=== PATIENT | male | born 1990 | race Caucasian/White ===

== ENCOUNTER 2016-09-27 10:34 | Emergency (ER) | payer BC, OTHER ==
[2016-09-27 10:39] VITALS: BP 144/66; PULSE 59; TEMP 97.6; BMI 27.3
--- NOTE | 2016-09-27 11:27 | PDOC ---
History of Present Illness - General Chief Complaint: Eye Problem Stated Complaint: PAIN IN RIGHT EYE Time Seen by Provider: 09/27/16 10:45 History Source: Patient Exam Limitations: No Limitations - History of Present Illness Initial Comments: 09/27/16 12:59 CHIEF COMPLAINT: Irritation to right eye HISTORY OF PRESENT ILLNESS: Patient is a 26-year-old male reports having irritation or foreign body to his right eye today feels like sand particles in his eye. Eyes any visual disturbance. Wants to make sure he does not have an injury to his eye. REVIEW OF SYSTEMS: GENERAL/CONSTITUTIONAL: No fever or chills. No weakness. No weight change. HEAD, EYES, EARS, NOSE AND THROAT: No change in vision. No Drainage and sensation of "foreign body" to right eye. No ear pain or discharge. No sore throat. RESPIRATORY: No cough, wheezing, or hemoptysis. SKIN : No rash or easy bruising. NEUROLOGIC: No headache, vertigo, loss of consciousness, or loss of sensation. HEMATOLOGIC/LYMPHATIC: No lymphadenopathy ALLERGIC/IMMUNOLOGIC: No hives or skin allergy. No latex allergy. PHYSICAL EXAM: GENERAL: The patient is awake, alert, and fully oriented, in no acute distress. HEAD: Normal with no signs of trauma. EYES: Pupils equal, round and reactive to light, extraocular movements intact, sclera anicteric, conjunctiva clear, no corneal abrasion noted after fluorescein staining. ENT: Ears normal, nares patent, oropharynx clear without exudates. Moist mucous membranes. NECK: Normal range of motion, supple without lymphadenopathy, JVD, or masses. LUNGS: Breath sounds equal, clear to auscultation bilaterally. No wheezes, and no crackles. NEUROLOGICAL: Cranial nerves II through XII grossly intact. Normal speech, normal gait. SKIN: No erythema no facial edema. Warm, Dry, normal turgor, no rashes or lesions noted. Past History - Past Medical History Allergies/Adverse Reactions: Allergies Allergy/AdvReac Type Severity Reaction Status Date / Time No Known Allergies Allergy Verified 09/27/16 10:36 Home Medications: Ambulatory Orders Polymyxin B Sulfate/Tmp [Polytrim Opthalmic Solution -] 1 drop OD Q3H #1 drops 09/27/16 Other medical history: PATIENT DENIES MEDICAL HISTORY - Psycho/Social/Smoking Cessation Hx Suicidal Ideation: No Smoking History: Never smoked Hx Alcohol Use: No Drug/Substance Use Hx: No *Physical Exam - Vital Signs Last Vital Signs Temp Pulse Resp BP Pulse Ox 97.6 F 59 L 18 144/66 97 09/27/16 10:36 09/27/16 10:36 09/27/16 10:36 09/27/16 10:36 09/27/16 10:36 Medical Decision Making - Medical Decision Making 09/27/16 13:01 A/P: Patient with foreign body sensation to right eye, there is no corneal abrasion noted, mild irritation will DC patient on Polytrim to follow-up with ophthalmology if symptoms persist there is no visual disturbance visual acuity is 20/20. Patient to follow-up as needed. *DC/Admit/Observation/Transfer Diagnosis at time of Disposition: Eye irritation - Discharge Dispostion Disposition: HOME Condition at time of disposition: Good Admit: No - Prescriptions Prescriptions: Polymyxin B Sulfate/Tmp [Polytrim Opthalmic Solution -] 1 drop OD Q3H #1 drops - Referrals Referrals: Quique Morales MD [Staff Physician] - - Patient Instructions Printed Discharge Instructions: How to Instill Eye Drops Additional Instructions: PLease refrain from rubbing or scratching eye, if increased irritation return to ER.
== END 2016-09-27 11:34 | disposition home or self-care (01) ==
LOC: JERFT 10:34
DX: H57.8 Other specified disorders of eye and adnexa (principal)
CPT/HCPCS: 99281-25

== ENCOUNTER 2017-11-01 15:32 | Emergency (ER) | payer OTHER, BC ==
[2017-11-01 15:49] VITALS: BP 143/78; PULSE 94; TEMP 98.3; BMI 28.0
[2017-11-01] MEDS ORDERED: IBUPROFEN 600 MG TABLET (FP) PO ONE ×2 (16:07→16:38)
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
== END 2017-11-01 16:34 | disposition home or self-care (01) ==
LOC: JER 15:32 → JERFT 15:32
DX: S39.012A Strain of muscle, fascia and tendon of lower back, initial encounter (principal); S66.811A Strain of other specified muscles, fascia and tendons at wrist and hand level, right hand, initial encounter; Y35.811A Legal intervention involving manhandling, law enforcement official injured, initial encounter; Y93.89 Activity, other specified; Y92.89 Other specified places as the place of occurrence of the external cause; Y99.0 Civilian activity done for income or pay
CPT/HCPCS: 99281-25

== ENCOUNTER 2018-05-14 15:27 | Emergency (ER) | payer OTHER ==
[2018-05-14 15:54] VITALS: BP 134/78; PULSE 89; TEMP 98.4; BMI 25.4
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
[2018-05-14] MEDS ORDERED: IBUPROFEN 400 MG TABLET (FP) PO ONE ×2 (16:29→16:30)
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
== END 2018-05-14 16:36 | disposition home or self-care (01) ==
LOC: JER 15:27
DX: S39.012A Strain of muscle, fascia and tendon of lower back, initial encounter (principal); Y35.811A Legal intervention involving manhandling, law enforcement official injured, initial encounter; Y93.89 Activity, other specified; Y92.89 Other specified places as the place of occurrence of the external cause; Y99.0 Civilian activity done for income or pay
CPT/HCPCS: 72070-TC-FY; 99281-25

== ENCOUNTER 2019-03-09 11:06 | Emergency (ER) | payer OTHER ==
[2019-03-09 11:22] VITALS: BP 138/59; PULSE 59; TEMP 98; BMI 28.0
[2019-03-09] MEDS ORDERED: NAPROXEN 500 MG TABLET (FP) PO ONE (11:30)
--- NOTE | 2019-03-09 11:42 | PDOC ---
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 Patient reports 6 out of 10 pain to right lower back. Denies numbness and tingling sensation. Patient has not taken anything for pain Occurred: reports: just prior to arrival Past History - Past Medical History Allergies/Adverse Reactions: Allergies Allergy/AdvReac Type Severity Reaction Status Date / Time No Known Allergies Allergy Verified 03/09/19 11:22 Home Medications: Ambulatory Orders Cyclobenzaprine HCl [Flexeril -] 10 mg PO HS #10 tablet 05/14/18 Ibuprofen 800 mg PO TID #30 tablet 05/14/18 Methocarbamol [Robaxin -] 500 mg PO BID #14 tablet 03/09/19 Naproxen 500 mg PO BID PRN #20 tablet 03/09/19 COPD: No - Immunization History Immunization Up to Date: Yes - Psycho Social/Smoking Cessation Hx Smoking History: Never smoked Have you smoked in the past 12 months: No Hx Alcohol Use: No Drug/Substance Use Hx: No Review of Systems - Review of Systems Able to Perform ROS?: Yes Is the patient limited Nepali proficient: No Constitutional: No: Fever, Malaise, Weakness HEENTM: No: Symptoms Reported Respiratory: No: Symptoms reported Cardiac (ROS): No: Symptoms Reported ABD/GI: No: Symptoms Reported Musculoskeletal: Yes: Symptoms Reported, See HPI, Back Pain (right lower back), Muscle Pain Integumentary: No: Symptoms Reported Neurological: No: Symptoms reported, Numbness, Paresthesia, Tingling All Other Systems: Reviewed and Negative *Physical Exam - Vital Signs Last Vital Signs Temp Pulse Resp BP Pulse Ox 98 F 59 L 18 138/59 L 99 03/09/19 11:20 03/09/19 11:20 03/09/19 11:20 03/09/19 11:20 03/09/19 11:20 - Physical Exam Comments: 03/09/19 11:41 GENERAL: Well developed, well nourished. Awake and alert. No acute distress. CARDIOVASCULAR: Regular rate and rhythm. No murmurs, rubs, or gallops. PULMONARY: No evidence of respiratory distress. Lungs clear to auscultation bilaterally. No wheezing, rales or rhonchi. ABDOMINAL: Soft. Non-tender. Non-distended. No rebound or guarding. No organomegaly. Normoactive bowel sounds MUSCULOSKELETAL : mild tenderness over posterior paravertebral muscle lumbosacral spine of L4-S2 on right sides. No midline tenderness no bony deformities EXTREMITIES: No cyanosis. No clubbing. No edema. No calf tenderness. SKIN: Warm and dry. Normal capillary refill. No rashes. No jaundice. NEUROLOGICAL: Alert, awake, appropriate. No motor deficits in the lower extremities. Gait is normal without ataxia. PSYCHIATRIC: Cooperative. Good eye contact. Appropriate mood and affect. General Appearance: Yes: Nourished, Appropriately Dressed. 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 Patient reports 6 out of 10 pain to right lower back. Denies numbness and tingling sensation. Patient has not taken anything for pain Exam significant for mild tenderness right paravertebral muscle of lower lumbar spine of L4-S2. No midline tenderness. Patient symptoms likely back strain. Naproxen 500 mg p.o. ordered for pain. Patient stable for discharge on naproxen as needed for pain and Robaxin as needed for spasm with advised to do hot compress and follow-up with orthopedics as needed Discharge - Discharge Information Problems reviewed: Yes Clinical Impression/Diagnosis: Low back strain Qualifiers: Encounter type: initial encounter Qualified Code(s): S39.012A - Strain of muscle, fascia and tendon of lower back, initial encounter Condition: Stable Disposition: HOME - Admission No - Additional Discharge Information Prescriptions: Methocarbamol [Robaxin -] 500 mg PO BID #14 tablet Naproxen 500 mg PO BID PRN #20 tablet PRN Reason: Back Pain - Follow up/Referral Referrals: Frank Meza MD, [facility] [Staff Physician] - - Patient Discharge Instructions Patient Printed Discharge Instructions: DI for Low Back Pain Additional Instructions: Your symptoms likely caused by back strain. Take prescribed medication as needed for pain. Apply hot compress to lower back 2-3 times a day as needed for pain. Follow-up with orthopedics as needed if symptoms persist for more than 4 days - Post Discharge Activity Work/Back to School Note: Back to Work
[2019-03-09] MEDS ORDERED: NAPROXEN 500 MG TABLET (FP) ONE (11:44)
== END 2019-03-09 11:56 | disposition home or self-care (01) ==
LOC: JERFT 11:06
DX: S39.012A Strain of muscle, fascia and tendon of lower back, initial encounter (principal); Y35.811A Legal intervention involving manhandling, law enforcement official injured, initial encounter; Y93.89 Activity, other specified; Y92.89 Other specified places as the place of occurrence of the external cause; Y99.0 Civilian activity done for income or pay
CPT/HCPCS: 99281-25

== ENCOUNTER 2020-08-11 16:21 | Emergency (ER) | payer OTHER ==
[2020-08-11] MEDS ORDERED: ACETAMINOPHEN 500 MG TABLET (FP) PO ONE (16:41)
[2020-08-11 16:44] VITALS: BP 119/70; PULSE 76; TEMP 98.1; BMI 28.0
[2020-08-11] MEDS ORDERED: ACETAMINOPHEN 500 MG TABLET (FP) ONE (16:44)
== END 2020-08-11 17:38 | disposition home or self-care (01) ==
LOC: FER 16:21
DX: M54.5 Low back pain (principal)
CPT/HCPCS: 72100-TC-FY; 99283-25

== ENCOUNTER 2022-11-26 14:03 | Emergency (ER) | payer OTHER, BC ==
[2022-11-26 14:14] VITALS: BP 120/79; PULSE 80; RESP 18; TEMP 98.8; BMI 28.7
== END 2022-11-26 14:36 | disposition home or self-care (01) ==
LOC: FER 14:03
DX: M54.50 Low back pain, unspecified (principal); V49.40XA Driver injured in collision with unspecified motor vehicles in traffic accident, initial encounter
CPT/HCPCS: 99282-25

== ENCOUNTER 2023-10-22 11:51 | Emergency (ER) | payer BC ==
[2023-10-22 12:15] VITALS: BP 136/75; PULSE 76; RESP 18; TEMP 99; BMI 27.5
[2023-10-22] MEDS ORDERED: IBUPROFEN 400 MG TABLET (FP) PO ONE (13:06)
[2023-10-22] MEDS: IBUPROFEN 400 MG TABLET (FP) PO ONE (13:15)
[2023-10-22 13:32] LABS: HEMOGLOBIN 15.7 G/dL (11.7-16.9); MCH 29.7 pg (25.7-33.7); MCHC 33.5 g/dl (32.0-35.9); MEAN CELL VOLUME 88.8 fl (80-96); MEAN PLT VOLUME 7.9 fl (7.5-11.1); PLATELET COUNT 207.1 10^3/uL (134-434); RBC 5.29 10^6/uL (4.00-5.60); RDW 13.4 % (11.9-15.9); WHITE BLOOD COUNT 7.6 10^3/uL (4.0-10.8)
[2023-10-22 13:39] LABS: ALBUMIN 4.5 g/dl (3.4-5.0); BILIRUBIN,TOTAL 0.5 mg/dl (0.2-1); CALCIUM 9.4 mg/dl (8.5-10.1); TOT PROT 7.4 g/dl (6.4-8.2)
[2023-10-22 13:56] LABS: PLATELET ESTIMATE ADEQUATE
== END 2023-10-22 14:14 | disposition home or self-care (01) ==
LOC: FER 11:51
DX: R10.32 Left lower quadrant pain (principal)
CPT/HCPCS: 36415; 74176-TC; 80053; 81003; 85025; 87086; 99284-25